=== PATIENT | male | born 1985 | race Caucasian/White ===

== ENCOUNTER 2025-04-08 11:40 | Outpatient (OUT) | payer OTHER, SELFPAY ==
[2025-04-08 14:37] LABS: Alanine Aminotransferase 359 U/L (16-63); Albumin Globulin Ratio 1.1; Albumin Level 3.8 g/dL (3.4-5.0); Alkaline Phosphatase 85 U/L (46-116); Anion Gap 10.8; Aspartate Amino Transferase 204 U/L (15-37); Blood Urea Nitrogen 10.0 mg/dL (7.0-18.0); Calcium 9.3 mg/dL (8.5-10.1); Carbon Dioxide 28.2 mmol/L (21.0-32.0); Chloride 104 mmol/L (98-107); Estimated GFR (African America >60 (>=60 mL/min/1.73m^2); Estimated GFR (Non-African Ame >60 (>=60 mL/min/1.73m^2); Globulin 3.4 g/dL; Glucose 124 mg/dL (74-106); Potassium 4.0 mmol/L (3.5-5.1); Sodium 139 mmol/L (136-145); Total Protein 7.2 g/dL (6.4-8.2)
== END 2025-04-08 11:41 | disposition home or self-care (01) ==
PROVIDERS: Visit Provider Nurse Practitioner Primary Care
DX: F11.988 Opioid use, unspecified with other opioid-induced disorder (principal)
CPT/HCPCS: 80053; 83036; 84484; 86317; 87340; 87389; 87522

== ENCOUNTER 2025-04-12 12:55 | Outpatient (OUT) | payer OTHER, SELFPAY ==
--- OUTSIDE RECORDS SUMMARY | 2025-04-12 12:57 | XMS_ITS | Clinical Summary ---
Author Organization [facility] Address [facility] [place] [address] Care Team Providers Care Picture Engraver Name Role Phone Unavailable Primary Care Provider Unavailabl e Allergies Active Allergy Reactions Criticality Noted Date Comments Morphine Hives 03/13/2021 Naloxone Hives 06/26/2023 Tolerated with no hives 03/20/25 -Ellen Velasco PharmD Pollen Extracts Unknown 04/17/2021 Medications buprenorphine SL (SUBUTEX) 8 mg subl Dissolve 8 mg under the tongue two times a day. Active clonazePAM (KLONOPIN) 1 mg tablet Take 0.5-1 mg by mouth two times a day as needed for anxiety. Max of 1.5 tablets per day 5 Active VYVANSE 30 mg capsule Take 30 mg by mouth once daily. 5 Active BELSOMRA 15 mg tab Take 15 mg by mouth at bedtime as needed (insomnia). 5 Active TRINTELLIX 20 mg tablet Take 20 mg by mouth once daily. 5 Active traZODone (DESYREL) 150 mg tablet Take 150 mg by mouth daily at bedtime. 03/20/20 25 Discontinu ed(Erroneo us entry) MUCINEX DM 60-1,200 mg tab ER 12 hr 1 03/20/20 25 Discontinu ed(Erroneo us entry) albuterol HFA (PROVENTIL HFA, VENTOLIN HFA) 90 mcg/actuation inhaler 1 03/20/20 25 Discontinu ed(Erroneo us entry) phenylephrine/ DM/acetaminop/ GG (SUDAFED PE COLD AND COUGH ORAL) Take by mouth. 03/20/20 25 Discontinu ed(Erroneo us entry) ARIPiprazole (ABILIFY) 2 mg tablet 2 03/20/20 25 Discontinu ed(Erroneo us entry) SUBLOCADE 300 mg/1.5 mL injection 2 03/20/20 25 Discontinu ed(Erroneo us entry) hydrOXYzine HCl (ATARAX) 25 mg tablet TAKE 1 TABLET ORAL TWICE A DAY NEEDED FOR ANXIETY OR INSOMNIA 2 03/20/20 25 Discontinu ed(Erroneo us entry) ibuprofen (MOTRIN) 600 mg tablet TAKE 1 TABLET ORAL EVERY SIX TO EIGHT HOURS NEEDED FOR PAIN FOR MYALGIA RELATED TO WITHDRAWAL 2 03/20/20 25 Discontinu ed(Erroneo us entry) QUEtiapine (SEROQUEL) 50 mg tablet 2 03/20/20 25 Discontinu ed(Erroneo us entry) STOOL SOFTENER-STIMU LANT LAXAT 8.6-50 mg per tablet 2 03/20/20 25 Discontinu ed(Erroneo us entry) azithromycin (ZITHROMAX Z-DC) 250 mg tablet 2 tablets by mouth first day then 1 tablet the next 4 days 6 tablet 2 03/20/20 25 Discontinu ed(Erroneo us entry) albuterol HFA (PROVENTIL HFA, VENTOLIN HFA) 90 mcg/actuation inhaler Inhale 2 Puffs as instructed every 6 hours as needed for wheezing/short ness of breath. 1 Each 2 03/20/20 25 Discontinu ed(Erroneo us entry) Active Problems Problem Noted Date Diagnosed Date Coronary vasospasm 03/20/2025 Anxiety 04/17/2021 Bipolar I disorder 04/17/2021 Depressive disorder 04/17/2021 Javi de la Tourette's syndrome 04/17/2021 Testosterone deficiency 04/17/2021 Dysuria 03/13/2021 Left upper quadrant abdomina l tenderness with rebound tenderness 03/13/2021 Generalized abdominal pain 03/13/2021 Opioid dependence in remission 03/13/2021 Obesity, Class I, BMI 30-34.9 03/13/2021 Symptom of leg swelling 03/02/2018 Hepatitis C Low testosterone in male Sarcoidosis Migraines Encounters Date Type Department Care Team Description 03/20/2025 7:32 AM EDT - 03/20/2025 12:10 PM EDT Hospital Encounter [facility] Emergency Department [address] [place] [address] Vernon Staples DO Koleti, Pragna, MD Coronary vasospasm [I20.1] Discharge Disposition: AMA/Discontinuation of Care-Use additional discharge code 03/20/2025 Travel 03/19/2025 2:19 AM EDT - 03/19/2025 5:30 AM EDT Emergency [facility] Emergency Department [address] [place] [address] Radha Pierre MD unresponsive Discharge Disposition: AMA/Discontinuation of Care-Use additional discharge code 03/19/2025 Travel 03/17/2025 Travel from Last 3 Months Immunizations Immunization Administration Dates Next Due tetanus toxoid (TT) vaccine 09/11/2021 Family History Medical History Relation Comments Diabetes Brother Mental illness Maternal Grandmother Ovarian cancer Maternal Grandmother malignant neoplasm of brain Maternal Grandmother Mental illness Mother Ovarian cancer Mother Lung Cancer Paternal Grandfather Relation Status Comments Brother Maternal Grandmother Mother Paternal Grandfather Social History Tobacco Use Types Packs/Day Years Used Date Smoking Tobacco: Every Day Cigarettes 1 21 Smokeless Tobacco: Never Alcohol Use Standard Drinks/Week Comments Not Currently 0 (1 standard drink = 0.6 oz pur e alcohol) PHQ-2 Answer Date Recorded PHQ-2 score 0 05/09/2022 Area Deprivation Index Answer Date Pranav rded National Score (1-100), lowe r number is lower risk 46 03/20/2025 State Score (1-10), lower number is lower risk 2 03/20/2025 Data from: https://www.neighborhoodatlas.medicine.[facility].edu/ . Last address used for calculation [address] [place] 03/20/2025 Sex and Gender Information Value Date Recorded Sex Assigned at Male 03/20/2021 9:25 AM EDT Legal Sex Male 9:18 AM EST Gender Identity Male 03/20/2021 9:25 AM EDT Sexual Orientation Straight 03/20/2021 9: 25 AM EDT Last Filed Vital Signs Vital Sign Reading Time Taken Comments Blood Pressure 114/63 03/20/2025 11:00 AM EDT Pulse 88 03/20/2025 11:00 AM EDT Temperature 36.6 C (97.8 F) 03/20/2025 5:55 AM EDT Respiratory Rate 25 03/20/2025 11:00 AM EDT Oxygen Saturation 98% 03/20/2025 11:00 AM EDT Inhaled Oxygen Concentration - - Weight 122.5 kg (270 lb) 03/20/2025 5:55 AM EDT Height 175.3 cm (5' 9 ) 03/20/2025 5:55 AM EDT Body Mass Index 39.87 03/20/2025 5:55 AM EDT Plan of Treatment Upcoming Encounters Date Type Department Care Team (Late st Contact Info) Description 04/27/2025 7:45 PM EDT Office Visit [facility] [address] [place] [address] G47.0 04/28/2025 6:00 AM EDT Office Visit [facility] [address] [place] [address] 55425 G47.0 Health Maintenance Due Date Last Done Comments DTaP,Tdap,Td Vaccine (1 - Tdap) 2006 Hepatitis B Vaccine (1 of 3 - 19+ 3-dose series) 2006 Pneumococcal Vaccine (1 of 2 - PCV) 2006 HPV Vaccine (1 - 3-dose SCDM series) 2014 Influenza Vaccine (#1) 2025 Lipid Screening 03/17/2030 03/17/2025, 03/14/2021 HIV Screening Completed 03/17/2025 Hepatitis C Screening Completed 03/17/2025 , 03/17/2025, 03/17/2025, Additional history exists Procedures Procedure Name Priority Date/Time Associated Diagnosis Comments EKG Routine 03/20/2025 10:36 AM EDT HIGH SENSITIVITY TROPONIN I (SECOND) STAT 03/20/2025 8:44 AM EDT XR CHEST 1V FRONTAL PORT STAT 03/20/2025 7:43 AM EDT ECG COMPLETE STAT 03/20/2025 6:33 AM EDT HIGH SENSITIVITY TROPONIN I (INITIAL) STAT 03/20/2025 6:32 AM EDT MAGNESIUM BLD STAT 03/20/2025 6:32 AM EDT COMPREHENSIVE METABOLIC PANEL STAT 03/20/2025 6:32 AM EDT CBC + DIFF STAT 03/20/2025 6:32 AM EDT HIGH SENSITIVITY TROPONIN I STAT 03/19/2025 4:26 AM EDT TOX SCREEN ROUT UR STAT 03/19/2025 3: 47 AM EDT URINALYSIS (WITH MICROSCOPIC) WITH CULTURE IF INDICATED STAT 03/19/2025 3:47 AM EDT ECG COMPLETE STAT 03/19/2025 3:33 AM EDT GLUCOSE, BLOOD (POC) Routine 03/19/2025 3:28 AM EDT VENOUS BLOOD GASES STAT 03/19/2025 3: 02 AM EDT ALCOHOL/ETHANOL BLD STAT 03/19/2025 3 :02 AM EDT PROTHROMBIN TIME STAT 03/19/2025 3:02 AM EDT CK CREATINE KINASE STAT 03/19/2025 3: 02 AM EDT LIPASE BLD STAT 03/19/2025 3:02 AM EDT HIGH SENSITIVITY TROPONIN I STAT 03/19/2025 3:02 AM EDT COMPREHENSIVE METABOLIC PANEL STAT 03/19/2025 3:02 AM EDT CBC + DIFF STAT 03/19/2025 3:02 AM EDT SEPSIS LACTATE STAT 03/19/2025 3:02 AM EDT BILIRUBIN, CONJUGATED Routine 03/17/2025 11:22 AM EDT Chronic hepatitis C with hepatic coma (HCC) HEPATITIS C VIRUS (HCV) GENOTYPING BY RT-PCR, PLASMA/SERUM Routine 03/17/2025 11:22 AM EDT Chronic hepatitis C with hepatic coma (HCC) LIVER FIBROSIS AND ACTIVITY Routine 03/17/2025 11:22 AM EDT Chronic hepatitis C with hepatic coma (HCC) HIV 1/2 COMBO WITH REFLEX TO DIFFERENTIATION Routine 03/17/2025 11:22 AM EDT Chronic hepatitis C with hepatic coma (HCC) PROTHROMBIN TIME Routine 03/17/2025 11:2 2 AM EDT Chronic hepatitis C with hepatic coma (HCC) CBC + DIFF Routine 03/17/2025 11:22 AM EDT Chronic hepatitis C with hepatic coma (HCC) HEPATITIS C VIRUS (HCV) RNA, QUANTITATIVE PCR, PLASMA/SERUM Routine 03/17/2025 11:22 AM EDT Chronic hepatitis C with hepatic coma (HCC) HEP B SURF AG SCRN Routine 03/17/2025 11 :22 AM EDT Chronic hepatitis C with hepatic coma (HCC) HEP B CORE AB TOTAL Routine 03/17/2025 1 1:22 AM EDT Chronic hepatitis C with hepatic coma (HCC) TSH BLD Routine 03/17/2025 11:22 AM EDT Chronic hepatitis C with hepatic coma (HCC) HEMOGLOBIN A1C Routine 03/17/2025 11:22 AM EDT Chronic hepatitis C with hepatic coma (HCC) HEP B SURF AB QUAL Routine 03/17/2025 11 :22 AM EDT Chronic hepatitis C with hepatic coma (HCC) COMPREHENSIVE METABOLIC PANEL Routine 03/17/2025 11:22 AM EDT Chronic hepatitis C with hepatic coma (HCC) LIPID PANEL, FASTING Routine 03/17/2025 11:22 AM EDT Chronic hepatitis C with hepatic coma (HCC) HEPATITIS A ANTIBODY, IGG Routine 03/17/2025 11:22 AM EDT Chronic hepatitis C with hepatic coma (HCC) from Last 3 Months Results * EKG (03/20/2025 10:36 AM EDT) Ventricular Rate 95 BPM [facility] Atrial Rate 95 BPM [facility] P-R Interval 180 ms [facility] QRS Duration 86 ms [facility] QT Interval 364 ms [facility] QTC Calculation (Bazett) 457 ms [facility] Calculated P [place] 50 degrees [facility] Calculated R [place] 12 degrees [facility] Calculated T [place] 44 degrees [facility] 03/20/2025 10:3 6 AM EDT Impressions [facility] - 03/20/2025 4:09 PM EDT Normal sinus rhythm Normal ECG No previous ECGs available Confirmed by AMY ALBARRAN MD ([id number]) on 03/20/2025 4:09:31 PM Narrative [facility] - 03/20/2025 4:09 PM EDT NAME : ROSA KRISHNAN PID : [id number] : 1985 Gender : Male Race : ORD : Procedure Date : Mar 20 2025 10:36:30 Edit Date : Mar 20 2025 16:09:37 Diagnosis: Normal sinus rhythm Normal ECG No previous ECGs available Confirmed by AMY ALBARRAN MD ([id number]) on 03/20/2025 4:09:31 PM Test Reason : stat Location : 0 : ED [id number] Overread By : AMY ALBARRAN MD Edited By : AMY ALBARRAN MD Referred By : , Acquired by : er, us Ccf Provider CARDIOLOGY_ME Final Result Performing Organization Address [facility]/ZIP Co de Phone Number [facility] [address] [place] [address], * HIGH SENSITIVITY TROPONIN I (SECOND) (03/20/2025 8:44 AM EDT) Troponin I High Sensitivty 12.4 0.0 - 54.0 pg/mL 03/20/2025 9:43 AM EDT [facility] Blood BLOOD SPECIMEN / Unknown Venipuncture / Unknown 03/20/2025 8:44 AM EDT 03/20/2025 8:48 AM EDT Vernon Staples DO LABORATORY Final Resu lt Performing Organization Address [facility]/ZIP Co de Phone Number [facility] [address] [place] [id number], * XR CHEST 1V FRONTAL PORT (03/20/2025 7:43 AM EDT) Anatomical Region Laterality Modality Chest Radiographic Ghada ging 03/20/2025 7:43 AM EDT Impressions 03/20/2025 7:52 AM EDT IMPRESSION: Stable exam with no evidence of acute disease. Boom Conveyor Operator: PSCB Transcribe Date/Time: Mar 20 2025 7:49A Dictated by : WILFRIDO RO MD This examination was interpreted and the report reviewed and electronically signed by: WILFRIDO RO MD on Mar 20 2025 7:50AM EST Narrative 03/20/2025 7:52 AM EDT * * *Final Report* * * DATE OF EXAM: Mar 20 2025 7:43AM [id number] - XR CHEST 1V FRONTAL PORT / PROCEDURE REASON: Chest pain * * * * Physician Interpretation * * * * EXAMINATION: CHEST RADIOGRAPH (PORTABLE SINGLE VIEW AP) Exam Date/Time: 03/20/2025 7:43 AM CLINICAL HISTORY: Chest pain MQ: XCPR_5 Comparison: 02/07/2017. RESULT: Lines, tubes, and devices: None. Lungs and pleura: The lungs remain unremarkable with no definite infiltrates. The pleural margins appear normal. Cardiomediastinal silhouette: Stable cardiomediastinal silhouette. Other: The visualized bony thorax appears unremarkable. Procedure Note Provider, [facility] - 03/20/2025 * * *Final Report* * * DATE OF EXAM: Mar 20 2025 7:43AM [id number] - XR CHEST 1V FRONTAL PORT / PROCEDURE REASON: Chest pain * * * * Physician Interpretation * * * * EXAMINATION: CHEST RADIOGRAPH (PORTABLE SINGLE VIEW AP) Exam Date/Time: 03/20/2025 7:43 AM CLINICAL HISTORY: Chest pain MQ: XCPR_5 Comparison: 02/07/2017. RESULT: Lines, tubes, and devices: None. Lungs and pleura: The lungs remain unremarkable with no definite infiltrates. The pleural margins appear normal. Cardiomediastinal silhouette: Stable cardiomediastinal silhouette. Other: The visualized bony thorax appears unremarkable. IMPRESSION IMPRESSION: Stable exam with no evidence of acute disease. Boom Conveyor Operator: PSCB Transcribe Date/Time: Mar 20 2025 7:49A Dictated by : WILFRIDO RO MD This examination was interpreted and the report reviewed and electronically signed by: WILFRIDO RO MD on Mar 20 2025 7:50AM EST us Vernon Staples DO RAD-PAMA Final Resu lt * ECG COMPLETE (03/20/2025 6:33 AM EDT) Ventricular Rate 79 BPM [facility] Atrial Rate 79 BPM [facility] P-R Interval 198 ms [facility] QRS Duration 86 ms [facility] QT Interval 374 ms [facility] QTC Calculation (Bazett) 428 ms [facility] Calculated P [place] 53 degrees [facility] Calculated R [place] 14 degrees [facility] Calculated T [place] 12 degrees [facility] 03/20/2025 6:33 AM EDT Impressions [facility] - 03/20/2025 9:18 AM EDT Normal sinus rhythm Normal ECG When compared to previous ekg no significant changes seen Confirmed by AMY ALBARRAN MD ([id number]) on 03/20/2025 9:18:32 AM Narrative [facility] - 03/20/2025 9:18 AM EDT NAME : ROSA KRISHNAN PID : [id number] : 1985 Gender : Male Race : ORD : [id number] Procedure Date : Mar 20 2025 06:33:48 Edit Date : Mar 20 2025 09:18:36 Diagnosis: Normal sinus rhythm Normal ECG When compared to previous ekg no significant changes seen Confirmed by AMY ALBARRAN MD ([id number]) on 03/20/2025 9:18:32 AM Test Reason : STAT Location : 0 : ED Overread By : AMY ALBARRAN MD Edited By : AMY ALBARRAN MD Referred By : , Acquired by : [id number], Vernon Staples DO EKG Final Resu lt [facility] [address] [place] [address], * MAGNESIUM (03/20/2025 6:32 AM EDT) [facility] Magnesium 2.4 1.6 - 2.6 mg/dL 03/20/2025 8:24 AM EDT [facility] Blood BLOOD SPECIMEN / Unknown Venipuncture / Unknown 03/20/2025 6:32 AM EDT 03/20/2025 6:41 AM EDT Vernon Staples DO LABORATORY Final Resu lt Performing Organization Address [facility]/ZIP Co de Phone Number [facility] [address] [place] [address], * HIGH SENSITIVITY TROPONIN I (INITIAL) (03/20/2025 6:32 AM EDT) Pathologist [facility] Troponin I High Sensitivty 12.5 0.0 - 54.0 pg/mL 03/20/2025 8:28 AM EDT [facility] Blood BLOOD SPECIMEN / Unknown Venipuncture / Unknown 03/20/2025 6:32 AM EDT 03/20/2025 6:41 AM EDT us Vernon Staples DO LABORATORY Final Resu lt [facility] [address] [email or web address] [address], * (ABNORMAL) COMPREHENSIVE METABOLIC PANEL (03/20/2025 6:32 AM EDT) Only the most recent of3 resultswithin the time period is included. Protein, Total 6.6 6.0 - 8.5 g/dL 03/20/2025 8:24 AM [facility] Albumin 3.8 3.2 - 5.0 g/dL 03/20/2025 8:24 AM [facility] Calcium, Total 8.9 8.5 - 10.5 mg/dL 03/20/2025 8:24 AM [facility] Bilirubin, Total 1.0 0.2 - 1.0 mg/dL 03/20/2025 8:24 AM [facility] Alkaline Phosphatase 81 45 - 117 U/L 03/20/2025 8:24 AM [facility] AST 256(H) 8 - 34 U/L 03/20/2025 8:24 AM [facility] Comment:Results may be false ly depressed after the administration of Sulfasalazine and/or Sulfapyridine. ALT 424(H) 13 - 61 U/L 03/20/2025 8:24 AM [facility] Comment:Results may be false ly depressed after the administration of Sulfasalazine and/or Sulfapyridine. Glucose 158(H) 70 - 100 mg/dL 03/20/2025 8:24 AM [facility] Comment: The [place] [employer] (ADA) provides guidance for cutoff values for fasting glucose and random glucose. The ADA defines fasting as no caloric intake for at least 8 hours. Fasting plasma glucose results between 100 to 125 mg/dL indicate increased risk for diabetes (prediabetes). Fasting plasma glucose results greater than or equal to 126 mg/dL meet the criteria for diagnosis of diabetes. In the absence of unequivocal hyperglycemia, results should be confirmed by repeat testing. In a patient with classic symptoms of hyperglycemia or hyperglycemic crisis, random plasma glucose results greater than or equal to 200 mg/dL meet the criteria for diagnosis of diabetes. Reference: Standards of Medical Care in Diabetes 2016, [place] [employer]. Diabetes Care. 2016.39(Suppl 1). Results may be falsely elevated after the administration of Sulfapyridine. Results may be falsely depressed after the administration of Sulfasalazine. BUN 11 7 - 26 mg/dL 03/20/2025 8:24 AM [facility] Creatinine 0.71 0.50 - 1.40 mg/dL 03/20/2025 8:24 AM [facility] Comment:Patients receiving e ither N-Acetylcysteine (NAC) or Metamizole prior to venipuncture, may have falsely depressed results. Sodium 139 136 - 145 mmol/L 03/20/2025 8:24 AM [facility] Potassium 3.4(L) 3.5 - 5.1 mmol/L 03/20/2025 8:24 AM [facility] Chloride 103 98 - 107 mmol/L 03/20/2025 8:24 AM [facility] CO2 26 21 - 32 mmol/L 03/20/2025 8:24 AM [facility] Anion Gap 10 5 - 16 mmol/L 03/20/2025 8:24 AM [facility] Estimated Glomerular Filtration Rate 120 >=60 mL/min/1. 73m 03/20/2025 8:24 AM [facility] Comment:Estimated Glomerular Filtration Rate (eGFR) is calculated using the 2020 CKD-EPI creatinine equation. This equation utilizes serum creatinine, sex, and age as parameters. The creatinine assay has traceable calibration to isotope dilution- mass spectrometry. Refer to KDIGO guidelines for clinical interpretation. In patients with unstable renal function, e.g. those with acute kidney injury, the eGFR may not accurately reflect actual GFR. Blood BLOOD SPECIMEN / Unknown Venipuncture / Unknown 03/20/2025 6:32 AM EDT 03/20/2025 6:41 AM EDT us Vernon Staples DO LABORATORY Final Resu lt [facility] [address] [email or web address] [address], [place] [phone] * COMPLETE BLOOD COUNT AND DIFFERENTIAL (03/20/2025 6:32 AM EDT) Only the most recent of3 resultswithin the time period is included. WBC 5.49 3.70 - 11.00 k/uL 03/20/2025 6:48 AM [facility] RBC 4.29 4.20 - 6.00 m/uL 03/20/2025 6:48 AM [facility] Hemoglobin 13.4 13.0 - 17.0 g/dL 03/20/2025 6:48 AM [facility] Hematocrit 39.2 39.0 - 51.0 % 03/20/2025 6:48 AM [facility] MCV 91.4 80.0 - 100.0 fL 03/20/2025 6:48 AM [facility] MCH 31.2 26.0 - 34.0 pg 03/20/2025 6:48 AM [facility] MCHC 34.2 30.5 - 36.0 g/dL 03/20/2025 6:48 AM [facility] RDW-CV 12.7 11.5 - 15.0 % 03/20/2025 6:48 AM [facility] Platelet Count 154 150 - 400 k/uL 03/20/2025 6:48 AM [facility] MPV 10.8 9.0 - 12.7 fL 03/20/2025 6:48 AM [facility] Neutrophils % 50.3 % 03/20/2025 6:48 AM [facility] Abs Neut 2.76 1.45 - 7.50 k/uL 03/20/2025 6:48 AM [facility] Lymphocytes % 36.1 % 03/20/2025 6:48 AM [facility] Abs Lymph 1.98 1.00 - 4.00 k/uL 03/20/2025 6:48 AM EDT [facility] Monocytes % 10.0 % 03/20/2025 6:48 AM EDT [facility] Abs [place] 0.55 <0.87 k/uL 03/20/2025 6:48 AM EDT [facility] Eosinophils % 2.6 % 03/20/2025 6:48 AM EDT [facility] Abs Eosin 0.14 <0.46 k/uL 03/20/2025 6:48 AM EDT [facility] Basophils % 0.5 % 03/20/2025 6:48 AM EDT [facility] Abs Baso 0.03 <0.11 k/uL 03/20/2025 6:48 AM EDT [facility] Immature Granulocytes % 0.5 % 03/20/2025 6:48 AM EDT [facility] Abs Immature Gran 0.03 <0.10 k/uL 025 6:48 AM EDT [facility] NRBC 0.0 /100 WBC 03/20/2025 6:48 AM EDT [facility] Absolute nRBC <0.01 <0.01 k/uL 03/20/2025 6:48 AM EDT [facility] Diff Type Auto 03/20/2025 6:48 AM T [facility] Blood BLOOD SPECIMEN / Unknown Venipuncture / Unknown 03/20/2025 6:32 AM EDT 03/20/2025 6:41 AM EDT us Vernon Staples DO LABORATORY Final Resu lt [facility] [address] [place] [address], * HIGH SENSITIVITY TROPONIN I (03/19/2025 4:26 AM EDT) Only the most recent of2 resultswithin the time period is included. Troponin I High Sensitivty 42.9 0.0 - 54.0 pg/mL 03/19/2025 4:49 AM [facility] Blood BLOOD SPECIMEN / Unknown Venipuncture / Unknown 03/19/2025 4:26 AM EDT 03/19/2025 4:29 AM EDT Radha Pierre MD LABORATORY Final Resu lt [facility] [address] [email or web address] [address], * (ABNORMAL) URINALYSIS (WITH MICROSCOPIC) WITH CULTURE IF INDICATED (03/19/2025 3:47 AM EDT) Color Straw Yellow 03/19/2025 4:20 AM [facility] Clarity Clear Clear 03/19/2025 4:20 AM [facility] Glucose, Urine Negative Negative 03/19/2025 4:20 AM [facility] Bilirubin, Urine Negative Negative 03/19/20 4:20 AM [facility] Ketones, Urine Negative Negative 03/19/2025 4:20 AM [facility] Specific [place], Ur <1.005(L) 1.005 - 1.030 03/19/2025 4:20 AM [facility] Hemoglobin/Blood ,Ur Negative Negative 03/19/2025 4:20 AM [facility] pH, Urine 6.0 5.0 - 8.0 03/19/2025 4:20 AM [facility] Protein, Urine Negative Negative 03/19/2025 4:20 AM [facility] Urobilinogen Negative Negative 03/19/2025 4:20 AM [facility] Nitrites Negative Negative 03/19/2025 4:20 AM [facility] Leuk Esterase Negative Negative 03/19/2025 4:20 AM [facility] WBC, Urine 0-5 /HPF 0-5 /HPF 03/19/2025 4:20 AM [facility] RBC, Urine 0-3 /HPF 0-3 /HPF 03/19/2025 4:20 AM [facility] Bacteria Rare(A) None Seen /HPF 03/19/2025 4:[facility] Squamous Epithelial Cells None Seen /HPF 03/19/2025 4:20 AM [facility] Urine MID-STREAM URINE SPECIMEN / Unknown Non Blood / Unknown 03/19/2025 3:47 AM EDT 03/19/2025 3:53 AM EDT us Radha Pierre MD LABORATORY Final Resu lt [facility] [id number] [email or web address] [address], * (ABNORMAL) TOXICOLOGY SCREEN, ROUTINE URINE (03/19/2025 3:47 AM EDT) Amphetamines, Urine Negative Negative 03/19/2025 4:16 AM [facility] Comment:Cutoff threshold at 1000 ng/mL. Barbiturates, Urine Negative Negative 03/19/2025 4:16 AM [facility] Comment:Cutoff threshold at 200 ng/mL. Benzodiazepin es, Urine Negative Negative 03/19/2025 4:16 AM [facility] Comment:Cutoff threshold at 200 ng/mL. Cannabinoids, Urine Negative Negative 03/19/2025 4:16 AM T [facility] Comment:Cutoff threshold at 50 ng/mL. Cocaine, Urine Positive(A) Negative 03/19/2025 4:16 AM [facility] Comment:Cutoff threshold at 300 ng/mL. Fentanyl, Urine Positive(A) Negative 03/19/2025 4:16 AM [facility] Comment:Cutoff threshold at 1 ng/mL. Opiates, Urine Negative Negative 03/19/2025 4:16 AM [facility] Comment:Cutoff threshold at 300 ng/mL. Oxycodone, Urine Negative Negative 03/19/2025 4:16 AM [facility] Comment:Cutoff threshold at 100 ng/mL. Phencyclidine , Urine Negative Negative 03/19/2025 4:16 AM EDT [facility] Comment:Cutoff threshold at 25 ng/mL. Urine URINE SPECIMEN / Unknown Non Blood / Unknown 03/19/2025 3:47 AM EDT 03/19/2025 3:53 AM EDT Narrative [facility] - 03/19/2025 4:16 AM EDT Urine Drugs of Abuse results are qualitative, providing a preliminary analytical result. A positive result for an assay should be confirmed by another nonimmunological, reference method. A negative result indicates that the assay material is either not present, or present at levels below the cutoff threshold for the analytical method range (AMR) validation. Radha Pierre MD LABORATORY Final Resu lt [facility] [address] [email or web address] [address], * ECG COMPLETE (03/19/2025 3:33 AM EDT) Ventricular Rate 83 BPM [facility] Atrial Rate 83 BPM [facility] P-R Interval 176 ms [facility] QRS Duration 84 ms [facility] QT Interval 360 ms [facility] QTC Calculation (Bazett) 423 ms [facility] Calculated P [place] 51 degrees [facility] Calculated R [place] 16 degrees [facility] Calculated T [place] 9 degrees [facility] 03/19/2025 3:33 AM EDT Impressions [facility] - 03/19/2025 3:47 PM EDT Normal sinus rhythm Normal ECG No previous ECGs available Confirmed by [facility] ([id number]) on 03/19/2025 3:47:20 PM Narrative [facility] - 03/19/2025 3:47 PM EDT NAME : ROSA KRISHNAN PID : [id number] : 1985 Gender : Male Race : ORD : [id number] Procedure Date : Mar 19 2025 03:33:15 Edit Date : Mar 19 2025 15:47:22 Diagnosis: Normal sinus rhythm Normal ECG No previous ECGs available Confirmed by AMY ALBARRAN MD ([id number]) on 03/19/2025 3:47:20 PM Test Reason : STAT Location : 0 : ED [id number] Overread By : AMY ALBARRAN MD Edited By : AMY ALBARRAN MD Referred By : , Acquired by : , Radha Pierre MD EKG Final Resu lt Performing Organization Address [facility]/ZIP Co de Phone Number [facility] [address] [place] [address], * (ABNORMAL) GLUCOSE, BLOOD (POC) (03/19/2025 3:28 AM EDT) [facility] Glucose, Point of Care 103(A) 74 - 99 mg/dL [facility] POINT OF CARE 03/19/2025 3:28 AM EDT [facility] Provider POC TESTING Final Result Performing Organization Address [facility] Co de Phone Number [facility] POINT OF CARE * SEPSIS LACTATE (03/19/2025 3:02 AM EDT) [facility] Sepsis Lactate 1.0 0.4 - 2.0 mmol/L 03/19/2025 3:32 AM EDT [facility] Blood BLOOD SPECIMEN / Unknown Venipuncture / Unknown 03/19/2025 3:02 AM EDT 03/19/2025 3:12 AM EDT Radha Pierre MD BLOOD GASES Final Resu lt Performing Organization Address [facility] Co de Phone Number [facility] [address] [place] [address], [place] [phone] * (ABNORMAL) VENOUS BLOOD GASES (03/19/2025 3:02 AM EDT) pH, Venous 7.43(H) 7.32 - 7.42 03/19/2025 3:11 AM EDT [facility] THERAPY pCO2, Venous 40(L) 42 - 55 mmHg 03/19/2025 3:11 AM EDT [facility] THER[facility] pO2, Venous 56(H) 35 - 45 mmHg 03/19/2025 3:11 AM EDT [facility] THERAP[facility] Base Excess, Venous 2 0 - 2 mmol/L 03/19/2025 3:11 AM EDT [facility] Bicarbonate, Venous 26 24 - 28 mmol/L 03/19/2025 3:11 AM EDT [facility] THERAP[facility] Oxyhemoglobin, Venous 86 4 - 98 % 03/19/2025 3:11 AM EDT [facility] THERAPY Carboxyhemoglo bin, Venous 2.7(H) 0.0 - 2.0 % 03/19/2025 3:11 AM EDT [facility] Comment:Carboxyhemoglobin Re ference Range for Smokers: 2.0-8.0% Methemoglobin, Venous 0.3 0.0 - 1.5 % 03/19/2025 3:11 AM EDT [facility] Sodium, Whole Blood 137 136 - 144 mmol/L 03/19/2025 3:11 AM EDT [facility] Potassium, Whole Blood 3.5 2.5 - 6.0 mmol/L 03/19/2025 3:11 AM EDT [facility] Calcium Ionized, Whole Blood 1.14 1.08 - 1.30 mmol/L 03/19/2025 3:11 AM EDT [facility] Glucose, Whole Blood 108(H) 60 - 105 mg/dL 03/19/2025 3:11 AM EDT [facility] Lactate 1.5 0.5 - 2.2 mmol/L 03/19/2025 3:11 AM EDT [facility] Hemoglobin, Whole Blood 15.8 13.0 - 17.0 g/dL 03/19/2025 3:11 AM EDT [facility] Temperature, Body 37.0 C 03/19/2025 3:11 AM EDT [facility] O2 Therapy RA=Room Air 03/19/2025 3:11 AM EDT [facility] Blood, Venous BLOOD SPECIMEN / Unknown Venipuncture / Unknown 03/19/2025 3:02 AM EDT 03/19/2025 3:09 AM EDT Radha Pierre MD BLOOD GASES Final Resu lt [facility]ER[facility] [address] [place] [address], * PROTHROMBIN TIME (03/19/2025 3:02 AM EDT) Only the most recent of2 resultswithin the time period is included. PT Sec 11.3 9.7 - 13.0 sec 03/19/2025 3:27 AM EDT [facility] INR 1.0 0.9 - 1.3 03/19/2025 3:27 AM EDT [facility] Comment: Vitamin K Antagonist (VKA) Therapeutic Range: INR 2 to 3 (Target INR of 2.5) Note: For patients treated with VKA drugs, such as warfarin, the [place] [employer] 2012 Guideline recommends a therapeutic INR range of 2 to 3 (target INR of 2.5). This recommendation includes high-risk patients with antiphospholipid syndrome with previous arterial or venous thromboembolism, current-generation mechanical or bioprosthetic aortic heart valve replacement. Note: Patients with mechanical aortic valve replacement and additional risk factors for thromboembolic events (atrial fibrillation, previous thromboembolism, LV dysfunction, hypercoagulable conditions) or an older generation mechanical AVR (i.e., ball in-Cage) or any mechanical MVR should have a INR therapeutic range of 2.5 to 3.5 (target INR of 3). Eamonyatt GH, et al. Chest 2012, 141:7S-47S Clemencia RA, et al. [facility] 2017, 70: 252-289 Blood BLOOD SPECIMEN / Unknown Venipuncture / Unknown 03/19/2025 3:02 AM EDT 03/19/2025 3:12 AM EDT Radha Pierre MD LABORATORY Final Resu lt [facility] [address] [place] [address], * LIPASE (03/19/2025 3:02 AM EDT) Lipase 28 12 - 60 U/L 03/19/2025 3:35 AM EDT [facility] Blood BLOOD SPECIMEN / Unknown Venipuncture / Unknown 03/19/2025 3:02 AM EDT 03/19/2025 3:12 AM EDT us Radha Pierre MD LABORATORY Final Resu lt [facility] [address] [place] [address], [place] [phone] * CREATINE KINASE/CK (03/19/2025 3:02 AM EDT) CK 116 26 - 192 U/L 03/19/2025 3:35 AM EDT [facility] Blood BLOOD SPECIMEN / Unknown Venipuncture / Unknown 03/19/2025 3:02 AM EDT 03/19/2025 3:12 AM EDT us Radha Pierre MD LABORATORY Final Resu lt [facility] [address] [place] [address], [place] [phone] * ETHANOL/ALCOHOL (03/19/2025 3:02 AM EDT) Ethanol <0.003 <0.010 gm/dL 03/19/2025 3:35 AM EDT [facility] Blood BLOOD SPECIMEN / Unknown Venipuncture / Unknown 03/19/2025 3:02 AM EDT 03/19/2025 3:12 AM EDT us Radha Pierre MD LABORATORY Final Resu lt [facility] [address] [place] [address], [place] [phone] * (ABNORMAL) LIVER FIBROSIS AND ACTIVITY (03/17/2025 11:22 AM EDT) Fibrosis Score 0.26 03/21/2025 7:41 AM [facility] Fibrosis Stage F0-F1 03/21/2025 7:41 AM [facility] Fibrosis Interpretation No Fibrosis 03/21/2025 7:41 AM [facility] Comment: Fibrosis Interpretation Table: FibroTest Score: >=0 and <=0.21 - Metavir Score: F0 No Fibrosis FibroTest Score: >0.21 and <=0.27 - Metavir Score: F0-F1 No Fibrosis FibroTest Score: >0.27 and <=0.31 - Metavir Score: F1 Minimal Fibrosis FibroTest Score: >0.31 and <=0.48 - Metavir Score: F1-F2 Minimal Fibrosis FibroTest Score: >0.48 and <=0.58- Metavir Score: F2 Moderate Fibrosis FibroTest Score: >0.58 and <=0.72 - Metavir Score: F3 Advanced Fibrosis FibroTest Score: >0.72 and <=0.74 - Metavir Score: F3-F4 Advanced Fibrosis FibroTest Score: >0.74 and <=1.00- Metavir Score: F4 Severe Fibrosis Necroinflam Activity Score 0.92 03/21/2025 7:41 AM [facility] Necroinflam Activity Grade A3 03/21/2025 7:41 AM [facility] Necroinflam Activity Interp Severe Activity 03/21/2025 7:41 AM [facility] Comment: Necroinflammatory Activity Interpretation Table: ActiTest Score: >=0 and <=0.17 - Metavir Score: A0 No activity ActiTest Score: >0.17 and <=0.29 - Metavir Score: A0-A1 No activity ActiTest Score: >0.29 and <=0.36 - Metavir Score: A1 Minimal activity ActiTest Score: >0.36 and <=0.52 - Metavir Score: A1-A2 Minimal activity ActiTest Score: >0.52 and <=0.60 - Metavir Score: A2 Significant activity ActiTest Score: >0.60 and <=0.62 - Metavir Score: A2-A3 Significant activity ActiTest Score: >0.62 and <=1.00 - Metavir Score: A3 Severe activity Alpha 2 Macroglobulin 190 80 - 290 mg/dL 03/21/2025 7:41 AM EDT [facility] Haptoglobin 133 31 - 238 mg/dL 03/21/2025 7:41 AM EDT [facility] APOLIPOPROTEIN A1 150 >114 mg/dL 03/21/2025 7:41 AM EDT [facility] Total Bilirubin 0.6 0.2 - 1.3 mg/dL 03/21/2025 7:41 AM EDT [facility] GGT 113(H) 10 - 71 U/L 03/21/2025 7:41 AM EDT [facility] ALT 387(H) 10 - 50 U/L 03/21/2025 7:41 AM EDT [facility] Blood BLOOD SPECIMEN / Unknown Venipuncture / Unknown 03/17/2025 11:22 AM EDT 03/17/2025 11:22 AM EDT Narrative [facility] - 03/21/2025 7:41 AM EDT Sample received not protected from light. The FibroTest-ActiTest is an algorithmic test developed and patented by [employer]. Testing is compliant with their technical recommendations. The reliability of results is dependent on compliance with the preanalytical and analytical conditions recommended by [employer]. The tests have to be deferred for: acute hemolysis, acute hepatitis, acute inflammation, extra hepatic cholestasis. The advice of a specialist should be sought for interpretation in chronic hemolysis and Gilbert's syndrome. The test interpretation is not validated in liver transplant patients. Isolated extreme values of one of the components should lead to caution in interpreting the results. In case of discordance between a biopsy result and a test, it is recommended to seek advice of a specialist. The causes of these discordances could be due to a flaw of the test or to a flaw in the biopsy: i.e. a liver biopsy has a 33% variability rate for one fibrosis stage. FibroTest is interpretable for chronic hepatitis B and C, alcoholic and non alcoholic steatosis. ActiTest is interpretable for chronic hepatitis B and C. This test was developed and its performance characteristics determined by [facility]'s [facility] (- PLMS). It has not been cleared or approved by the FDA. RT-PLMI is regulated under CLIA as qualified to perform high-complexity testing. This test is used for clinical purposes. It should not be regarded as investigational or for research. Yas Fonsecaey [facility] Final Result Performing Organization Address [facility] Co de Phone Number [facility] [address] [place] [address], [place] * HEPATITIS A ANTIBODY, IGG (03/17/2025 11:22 AM EDT) Hepatitis A IgG Negative 10:50 AM EDT [facility] Comment:No serological evide nce of past exposure to hepatitis A virus or hepatitis A vaccination. Should recent infection be suspected, repeat testing is suggested 3-4 weeks after this draw. Blood BLOOD SPECIMEN / Unknown Venipuncture / Unknown 03/17/2025 11:22 AM EDT 03/17/2025 11:22 AM EDT Yas Fonsecaey [facility] Final Result Performing Organization Address [facility] de Phone Number [facility] [address] [place] [address], [place] * HIV 1/2 COMBO WITH REFLEX TO DIFFERENTIATION (03/17/2025 11:22 AM EDT) HIV 12 Combo (Ag/Ab) Nonreactive Nonreactive 03/18/2025 10:48 AM EDT [facility] HIV-1/2 AB (Confirmatory) 03/18/2025 10:48 AM EDT [facility] Comment:Test not indicated. HIV Interpretation 03/18/2025 10:48 AM EDT [facility] Comment: No evidence of HIV-1 or HIV-2 infection. Should recent infection be suspected, repeat testing may be considered 2-3 weeks after this draw. [place] Rev. Code 3701.243(E): This information has been disclosed to you from confidential records protected from disclosure by state law. You shall make no further disclosure of this information without the specific, written, and informed release of the individual to whom it pertains or as otherwise permitted by state law. A general authorization for the release of medical or other information is not sufficient for the purpose of the release of HIV test results or diagnoses. Blood BLOOD SPECIMEN / Unknown Venipuncture / Unknown 03/17/2025 11:22 AM EDT 03/17/2025 11:22 AM EDT Yas Issa [facility] Final Result [facility] [address] [id number], [place] * (ABNORMAL) HEPATITIS C VIRUS (HCV) GENOTYPING BY RT-PCR, PLASMA/SERUM (03/17/2025 11:22 AM EDT) Pathologist [facility] HCV Genotype Genotype 3(A) 1:28 PM EDT [facility] Blood BLOOD SPECIMEN / Unknown Venipuncture / Unknown 03/17/2025 11:22 AM EDT 03/17/2025 11:22 AM EDT Yas Issa [facility] Final Result Performing Organization Address City/[facility]/ZIP Co de Phone Number [facility] [address] [id number], [place] * THYROID STIMULATING HORMONE (03/17/2025 11:22 AM EDT) Pathologist [facility] TSH 1.560 0.270 - 4.200 mIU/L 03/17/2025 12:18 PM EDT [facility] Blood BLOOD SPECIMEN / Unknown Venipuncture / Unknown 03/17/2025 11:22 AM EDT 03/17/2025 11:22 AM EDT Yas Issa [facility] Final Result [facility] [address] [id number], [place] * LIPID PANEL, FASTING (03/17/2025 11:22 AM [facility]) Cholesterol, Total 143 <200 mg/dL 03/17/2025 12:18 PM [facility] Comment: <200 mg/dL, Desirable 200-239 mg/dL, Borderline high >239 mg/dL, High Triglyceride 66 <150 mg/dL 03/17/2025 12:18 PM [facility] Comment: <150 mg/dL, Normal 150-199 mg/dL, Borderline high 200-499 mg/dL, High >499 mg/dL, Very high HDL Cholesterol 55 >39 mg/dL 12:18 PM [facility] Comment: 40-59 mg/dL, Acceptable >59 mg/dL, High: Negative risk factor for coronary heart disease <40 mg/dL, Low: Positive risk factor for coronary heart disease LDL Cholesterol, Calculated 75 <100 mg/dL 03/17/2025 12:18 PM [facility] Comment: <100 mg/dL, Optimal 100-129 mg/dL, Near optimal/above optimal 130-159 mg/dL, Borderline high 160-189 mg/dL, High >189 mg/dL, Very high Secondary prevention optimal LDL Cholesterol levels are recommended to be <70 mg/dL LDL cholesterol is calculated using the Fung-NIH equation. Non HDL Cholesterol 88 <130 mg/dL 03/17/2025 12:18 PM [facility] Comment: <130 mg/dL, Optimal 130-159 mg/dL, Near optimal/above optimal 160-189 mg/dL, Borderline high 190-219 mg/dL, High >219 mg/dL, Very high Secondary prevention optimal non HDL Cholesterol levels are recommended to be <100 mg/dL VLDL Cholesterol 10 <30 mg/dL 03/17/20 12:18 PM [facility] TC:HDL Ratio 2.60 <5.10 03/17/2025 12:18 PM [facility] LDL:HDL Ratio 1.36 <2.54 03/17/2025 12:18 PM [facility] Comment: Reference: 1. National Cholesterol Education Program ATP III Guideline At-A-Glance Quick Desk Reference: National Heart, Lung, and Blood Weed. National Institutes of Health. 2001: NIH Publication No. 01-3305. 2. An International Atherosclerosis Society position paper: global recommendations for the management of dyslipidemia: executive summary, Atherosclerosis. 2014: 232(2):410-413. Fasting Time 15 hrs 03/17/2025 12:18 PM EDT [facility] Blood BLOOD SPECIMEN / Unknown Venipuncture / Unknown 03/17/2025 11:22 AM EDT 03/17/2025 11:22 AM EDT Yas Issa [facility] Final Result [facility] [address] [place], [place] [id number], [place] * HEMOGLOBIN A1C (03/17/2025 11:22 AM EDT) [facility] Hemoglobin A1C 5.6 4.3 - 6.1 % 03/18/2025 9:01 PM EDT [facility] Comment:[employer] Diabetes As sociation guidelines indicate that patients with HgbA1c in the range 5.7-6.4% are at increased risk for development of diabetes, and intervention by lifestyle modification may be beneficial. HgbA1c greater or equal to 6.5% is considered diagnostic of diabetes. Estimated Average Glucose 114 mg/dL 03/18/2025 9:01 PM EDT [facility] Comment:eAG: (Estimated aver age glucose) is a calculated value from HgbA1c and is underwriting service representative of the average blood glucose level in the last 2-3 month period. Blood BLOOD SPECIMEN / Unknown Venipuncture / Unknown 03/17/2025 11:22 AM EDT 03/17/2025 11:22 AM EDT Yas Issa [facility] Final Result Performing Organization Address [facility]/ZIP Co de Phone Number [facility] [address] [place] [address], * (ABNORMAL) HEPATITIS C VIRUS (HCV) RNA, QUANTITATIVE PCR, PLASMA/SERUM (03/17/2025 11:22 AM EDT) [facility] HCV RNA Detected( A) Not detected ABHAY MARK [id number] 03/18/2025 9:33 PM EDT [facility] HCV RNA (IU/mL) 7,640,000 (H) IU/mL ABHAY MARK 6800 03/18/2025 9:33 PM EDT [facility] HCV RNA (log IU/mL) 6.88(H) Log IU/mL ABHAY MARK 6800 03/18/2025 9:33 PM EDT [facility] Blood BLOOD SPECIMEN / Unknown Venipuncture / Unknown 03/17/2025 11:22 AM EDT 03/17/2025 11:22 AM EDT [facility] - 03/18/2025 9:33 PM EDT mark HCV is an in vitro nucleic acid amplification test for both the detection and quantitation of hepatitis C virus RNA, in human EDTA plasma or serum, of HCV antibody positive or HCV-infected individuals. The linear range of the assay is 15 to 100,000,000 IU/mL (1.18 - 8.00 log IU/mL). The lower limit of detection of the assay is 15 IU/mL. Yas Issa CNP LABORATORY Final Result [facility] [address] [id number], [place] * HEPATITIS B SURFACE ANTIGEN (03/17/2025 11:22 AM EDT) HBsAg Negative Negative 03/17/2025 12:18 PM EDT [facility] Blood BLOOD SPECIMEN / Unknown Venipuncture / Unknown 03/17/2025 11:22 AM EDT 03/17/2025 11:22 AM EDT Yas Issa [facility] Final Result [facility] [address] [place] [address], [place] * HEPATITIS B SURFACE ANTIBODY (03/17/2025 11:22 AM EDT) Hep B Surface Ab, Qual Negative 03/18/2025 10:44 AM EDT [facility] Comment:No serological evide nce of immunity to Hepatitis B Virus. Hep B Surface Ab Quant <8.00 mIU/mL 03/18/2025 10:44 AM EDT [facility] Comment: <8 mIU/mL: No serological evidence of immunity to Hepatitis B Virus. >/= 8 to <12 mIU/mL: No serological evidence of immunity to Hepatitis B Virus. >/= 12 mIU/mL: Consistent with serological evidence of immunity to Hepatitis B Virus. Blood BLOOD SPECIMEN / Unknown Venipuncture / Unknown 03/17/2025 11:22 AM EDT 03/17/2025 11:22 AM EDT Yas Issa [facility] Final Result Performing Organization Address [facility]/ZIP Co de Phone Number [facility] [address] [address], [place] * HEPATITIS B CORE ANTIBODY TOTAL (03/17/2025 11:22 AM EDT) Hepatitis B Core Ab, Total Negative Negative 03/18/2025 10:50 AM EDT [facility] Comment:No evidence of curre nt or past infection with Hepatitis B virus. Should recent infection be suspected, repeat testing may be considered 3-4 weeks after this draw. Blood BLOOD SPECIMEN / Unknown Venipuncture / Unknown 03/17/2025 11:22 AM EDT 03/17/2025 11:22 AM EDT Yas Issa [facility] Final Result [facility] [address] [address], [place] * BILIRUBIN, CONJUGATED (03/17/2025 11:22 AM EDT) Bilirubin, Direct 0.2 <0.3 mg/dL 03/17/2025 12:18 PM EDT [facility] Blood BLOOD SPECIMEN / Unknown Venipuncture / Unknown 03/17/2025 11:22 AM EDT 03/17/2025 11:22 AM EDT us Yas Issa [employer] [facility] Final Result [facility] [address] [place] [address], from Last 3 Months Insurance [employer] Advance Directives * Full Code (Latest Code Status on File) Date Activated Date Inactivated Comments 03/20/2025 12:06 PM 03/20/2025 3:20 PM Question Answer Comments Full Code Order Discussed With: Patient
--- OUTSIDE RECORDS SUMMARY | 2025-04-12 12:57 | XMS_ITS | Encounter Summary ---
Author Organization [facility] Address [address] [place] [id number] Care Team Providers Care Verification Lead Name Role Phone Chris Merritt CONTROL CABINET ASSEMBLER.LEARNING ANALYST Primary Care Provider [phone] Danya Verde APRN.MARTHA Primary Care Provider [phone]- [phone] Source Comments In the event this information is protected by the Federal Confidentiality of Alcohol and Drug AbusePatient Records regulations: The Federal rules restrict any use of the information to criminally investigate or prosecute any alcohol or drug abuse patient.[facility] Encounter Details Date Type Department Care Team (Late st Contact Info) Description 05/29/2022 Get Medical Advice [facility] Family Medicine [address] [place] [address] [place] [id number] Chris Merritt APRN.[address] [place] [id number] Alena Negrete Social History Tobacco Use Types Packs/Day Years Used Date Smoking Tobacco: Every Day Cigarettes 1 21 Smokeless Tobacco: Never Alcohol Use Standard Drinks/Week Comments Not Currently 0 (1 standard drink = 0.6 oz pur e alcohol) PHQ-2 Answer Date Recorded PHQ-2 score 0 05/09/2022 Area Deprivation Index Answer Date Pranva rded National Score (1-100), lower number is lower ri Not on file 03/13/2021 State Score (1-10), lower number is lower risk N ot on file 03/13/2021 Data from: https://www.neighborhoodatlas.medicine.[facility].edu/. Last address used for calculation Not on file 03/13/2021 Sex and Gender Information Value Date Recorded Sex Assigned at Male 03/20/2021 9:25 AM EDT Legal Sex Male 9:18 AM EST Gender Identity Male 03/20/2021 9:25 AM EDT Sexual Orientation Straight 03/20/2021 9: 25 AM EDT COVID-19 Exposure Response Date Recorded In the last 10 days, have yo u been in contact with someone who was confirmed or suspected to have Coronavirus/COVID-19? No / Unsure 05/09/2022 7:25 PM EDT documented as of this encounter Plan of Treatment Upcoming Encounters Date Type Department Care Team (Late st Contact Info) Description 04/27/2025 7:45 PM EDT Office Visit [facility] [address] [place] [id number] G47.0 04/28/2025 6:00 AM EDT Office Visit [facility] [address] [place] [address] G47.0 documented as of this encounter Visit Diagnoses Not on filedocumented in this encounter Care Teams Verification Lead Relationship Specialty Start Date End Date Chris Merritt APRN.LEARNING ANALYST PCP - General 03/13/21 06/25/23 Danya Verde, LEONILA.LEARNING ANALYST [address] [place] [id number] PCP - General 06/26/23 03/19/25 documented as of this encounter
[2025-04-12 14:16] LABS: Hematocrit 45.0 % (42.0-54.0); Hemoglobin 15.5 g/dL (14.0-18.0); Immature Granulocytes Abs Auto 0.02 10^3/uL (0.00-0.03); Immature Granulocytes Pct Auto 0.3 % (0.0-0.5); Lymphocytes Absolute Auto 1.4 10^3/uL (1.2-3.8); Mean Corpuscular HGB Conc 34.4 g/dL (29.9-35.2); Mean Corpuscular Hemoglobin 30.9 pg (25.9-34.0); Mean Corpuscular Volume 89.6 fL (80.0-94.0); Platelet Count 192 10^3/uL (150-450); Red Blood Count 5.02 10^6/uL (4.70-6.10); White Blood Count 5.9 10^3/uL (4.0-11.0)
== END 2025-04-12 12:56 | disposition home or self-care (01) ==
LOC: LAB 12:55
PROVIDERS: Visit Provider Nurse Practitioner Primary Care
DX: F11.988 Opioid use, unspecified with other opioid-induced disorder (principal)
CPT/HCPCS: 36415; 85025; 87522; 87902